=== PATIENT | male | born 1935 | race Caucasian/White ===

== ENCOUNTER 2018-05-20 08:52 | Day surgery (SDC) | payer MEDICARE, BC ==
[2018-05-17 15:43] LABS: BASOPHILS % (AUTO) 0.5 % (0-1); EOSINOPHILS # (AUTO) 0.3 X10'3 (0-0.9); EOSINOPHILS % (AUTO) 4.2 % (0-6); LYMPHOCYTES # (AUTO) 1.4 X10'3 (1.1-4.8); LYMPHOCYTES % (AUTO) 19.9 % (21-51); MEAN CORPUSCULAR HGB CONC 33.2 % (33.0-36.5); MEAN CORPUSCULAR VOLUME 93.2 FL (78-98); MEAN PLATELET VOLUME 9.3 FL (7.4-10.4); MONOCYTES # (AUTO) 0.9 X10'3 (0-0.9); MONOCYTES % (AUTO) 12.6 % (2-12); NEUTROPHILS # (AUTO) 4.3 X10'3 (1.8-7.7); NEUTROPHILS % (AUTO) 62.8 % (42-75); PRE OP HEMATOCRIT 35.9 % (42.0-52.0); PRE OP HEMOGLOBIN 11.9 g/dL (14.0-17.9); PRE OP PLATELET COUNT 229 X10'3 (140-440); RED BLOOD COUNT 3.85 X10'6 (4.70-6.10); RED CELL DISTRIBUTION WIDTH 14.3 % (11.5-14.5)
[2018-05-17 15:58] LABS: ALBUMIN 3.5 G/DL (3.4-5.0); ALBUMIN/GLOBULIN RATIO 0.9 (1.1-1.5); ALKALINE PHOSPHATASE 106 IU/L (46-116); BLOOD UREA NITROGEN 26 MG/DL (7-18); BUN/CREATININE RATIO 15.3 (5.4-32.0); CHLORIDE 105 MMOL/L (99-107); PRE OP ALT 18 U/L (30-65); PRE OP ANION GAP 7 (8-16); PRE OP AST 17 U/L (10-37); PRE OP BILIRUB, TOTAL 0.3 MG/DL (0.0-1.0); PRE OP GLUCOSE 124 MG/DL (70-104); PRE OP POTASSIUM 4.2 MMOL/L (3.4-5.1); PRE OP SODIUM 141 MMOL/L (135-145); TOTAL CARBON DIOXIDE 29.4 MMOL/L (24-32); TOTAL PROTEIN 7.5 G/DL (6.4-8.2); eGFR 39 ML/MIN
[2018-05-17 16:24] LABS: PRE OP PROTIME 10.5 SECONDS (9.0-12.0)
[2018-05-20] VITALS (18 sets, daily range): BP systolic 90–131; BP diastolic 46–83
[~2018-05-20] VITALS: Ht 172.7 cm; Wt 74.0 kg
[~2018-05-20 08:52] MED LIST: AMIO200T40 PO; AMLODIPINE PO; ASCO500C15 PO; ASPI-611 PO; ATOR40TA72 PO; CHOL100046 PO; DOCU250C86 PO; OSC500T PO; ceFAZolin 1,000 MG in NS 100ML IVPB IV ONE; famotidine 20mg tablet PO ONE; gentamicin inj 400 MG in normal saline 100ml IV soln 90 ML IV ONE
[2018-05-20] MEDS: ringers solution, lacted 1,000 ML IV SCH ×2 (09:37→15:30)
[2018-05-20] MEDS ORDERED: neomy sulf/polymyxin B sulf. GU irrigation 1ml amp IR ONE (10:53)
[2018-05-20] MEDS ORDERED: tetracaine 1% (10mg/ml) pres. free inj. ONE (11:07)
[2018-05-20] MEDS ORDERED: midazolam 2 mg/2 ml injection ONE (11:08)
[2018-05-20] MEDS ORDERED: fentaNYL /PF 50mcg/ml 5ml ampule ONE (11:09)
[2018-05-20] MEDS ORDERED: fentaNYL/PF 50MCG/1 ML 2ML syringe ONE (11:09)
[2018-05-20] MEDS ORDERED: ceFAZolin 1000mg inj ONE (11:29)
[2018-05-20] MEDS ORDERED: diphenhydrAMINE 50 mg/ml inj ONE (11:34)
[2018-05-20] MEDS ORDERED: ringers solution, lacted 1,000 ML IV SCH (11:54)
[2018-05-20] MEDS ORDERED: morphine 4 MG/ML inj SYRINge IV PRN (11:55)
[2018-05-20] MEDS ORDERED: ondansetron/PF 4mg/2ml inj IV PRN ×2 (11:55→12:10)
[2018-05-20] MEDS ORDERED: HYDROmorphone inj. 0.5 MG/0.5 ML DISP.SYRIN IV PRN (11:55)
[2018-05-20] MEDS ORDERED: acetaminophen 325mg tablet PO PRN (12:10)
[2018-05-20] MEDS ORDERED: zolpidem 5mg tablet PO PRN (12:10)
[2018-05-20] MEDS ORDERED: mag hydrox/Alum hydrox/simeth 30ml oral suspension PO PRN (12:10)
[2018-05-20] MEDS ORDERED: proCHLORperazine 10 MG/2 ml inj IV PRN (12:10)
[2018-05-20] MEDS ORDERED: oxybutynin 5mg tablet PO PRN (12:10)
[2018-05-20] MEDS: ceFAZolin inj. 1,000 MG in dextrose 5%-water 50ml 50 ML IV SCH ×2 (16:05→23:21)
[2018-05-20] MEDS: potassium cl 20mEq in 1/2 NS 1,000 ML IV SCH ×2 (16:05→23:14)
[2018-05-20] MEDS ORDERED: amiodarone 200mg tablet PO SCH (21:00)
[2018-05-20] MEDS ORDERED: docusate sod 250mg capsule PO SCH (21:00)
[2018-05-20] MEDS ORDERED: atorvastatin 20mg tablet PO SCH (21:00)
[2018-05-20] MEDS ORDERED: calcium carbonate 500mg tablet PO SCH (21:00)
[2018-05-20] MEDS: docusate sod 100mg capsule PO SCH (21:41)
[2018-05-21] VITALS: BP 113/58
[2018-05-21 04:00] VITALS: BP 101/64
[2018-05-21 04:05] LABS: BASOPHILS # (AUTO) 0.1 X10'3 (0-0.2); BASOPHILS % (AUTO) 0.6 % (0-1); EOSINOPHILS # (AUTO) 0.6 X10'3 (0-0.9); EOSINOPHILS % (AUTO) 6.7 % (0-6); HEMATOCRIT 35.4 % (42.0-52.0); HEMOGLOBIN 11.8 g/dl (14.0-17.9); LYMPHOCYTES # (AUTO) 0.7 X10'3 (1.1-4.8); LYMPHOCYTES % (AUTO) 8.3 % (21-51); MEAN CORPUSCULAR HEMOGLOBIN 30.9 PG (27.0-31.0); MEAN CORPUSCULAR HGB CONC 33.4 % (33.0-36.5); MEAN CORPUSCULAR VOLUME 92.7 FL (78-98); MEAN PLATELET VOLUME 9.5 FL (7.4-10.4); MONOCYTES # (AUTO) 1.1 X10'3 (0-0.9); MONOCYTES % (AUTO) 13.3 % (2-12); NEUTROPHILS % (AUTO) 71.1 % (42-75); PLATELET COUNT 171 X10'3 (140-440); RED BLOOD COUNT 3.82 X10'6 (4.70-6.10); WHITE BLOOD COUNT 8.5 X10'3 (4.5-11.0)
[2018-05-21 04:16] LABS: ALBUMIN 2.9 G/DL (3.4-5.0); ANION GAP 8 (8-16); BLOOD UREA NITROGEN 18 MG/DL (7-18); BUN/CREATININE RATIO 10.8 (5.4-32.0); CALCIUM 8.8 MG/DL (8.5-10.1); CHLORIDE 104 MMOL/L (99-107); CREATININE 1.67 MG/DL (0.60-1.10); GLUCOSE 94 MG/DL (70-104); POTASSIUM 4.6 MMOL/L (3.5-5.1); SODIUM 138 MMOL/L (135-145); TOTAL CARBON DIOXIDE 25.6 MMOL/L (24-32); eGFR 39 ML/MIN
[2018-05-21] MEDS: potassium cl 20mEq in 1/2 NS 1,000 ML IV SCH (06:43)
[2018-05-21 07:01] VITALS: BP 115/60
[2018-05-21] MEDS ORDERED: pantoprazole 40mg Tablet.DR PO SCH (07:30)
[2018-05-21] MEDS: docusate sod 100mg capsule PO SCH (07:36)
[2018-05-21] MEDS ORDERED: ceFAZolin 1GM/D5W- ADD-VANTAGE 50 ML IV SCH (08:00)
[2018-05-21] MEDS ORDERED: amLODIPine 5mg tablet PO SCH ×2 (08:00→21:00)
[2018-05-21] MEDS ORDERED: NITR100C PO (09:37)
[2018-05-21 11:48] VITALS: BP 125/72
== END 2018-05-21 12:15 | disposition home or self-care (01) ==
LOC: PAS 08:52 → SUR 3N 14:42 → PAS 05-21 12:15
PROVIDERS: ATTEND Urology
DX: N40.1 Benign prostatic hyperplasia with lower urinary tract symptoms (principal); N32.0 Bladder-neck obstruction; I48.91 Unspecified atrial fibrillation; I11.0 Hypertensive heart disease with heart failure; I50.9 Heart failure, unspecified; I25.2 Old myocardial infarction; Z87.891 Personal history of nicotine dependence; Z87.440 Personal history of urinary (tract) infections; Z95.1 Presence of aortocoronary bypass graft; Z98.890 Other specified postprocedural states
CPT/HCPCS: 36415; 52601; 80048; 80053; 85025; 85610; 85730; 86885; 86900; 86901; A4346; A4615; J0690; J1200; J1580; J2250; J3010; J7030; J7060; A4402; G0378; J7120

== ENCOUNTER 2019-05-08 07:42 | Day surgery (SDC) | payer MEDICARE, BC ==
[~2019-05-08] VITALS: Ht 172.7 cm; Wt 67.9 kg
[~2019-05-08 07:42] MED LIST changes: -AMIO200T40 PO; +AMIO200T61 PO; -ASPI-611 PO; +NITR100C PO; -ceFAZolin 1,000 MG in NS 100ML IVPB IV ONE; -famotidine 20mg tablet PO ONE; -gentamicin inj 400 MG in normal saline 100ml IV soln 90 ML IV ONE
[2019-05-08] MEDS ORDERED: MIDAZolam 5mg/ml 2ml vial IV ONE (08:40)
[2019-05-08] MEDS ORDERED: normal saline 1000ml 1,000 ML IV SCH (08:40)
[2019-05-08] MEDS ORDERED: fentaNYL/PF 50MCG/1 ML 2ML syringe IV ONE (08:40)
== END 2019-05-08 09:30 | disposition home or self-care (01) ==
LOC: SSTAY O 07:42
PROVIDERS: ATTEND Internal Medicine Cardiovascular Disease
DX: I48.91 Unspecified atrial fibrillation (principal); Z53.8 Procedure and treatment not carried out for other reasons; Z79.01 Long term (current) use of anticoagulants; I25.10 Atherosclerotic heart disease of native coronary artery without angina pectoris; Z95.0 Presence of cardiac pacemaker; I10 Essential (primary) hypertension
CPT/HCPCS: 93005; J7030